=== PATIENT | female | born 1965 | race African-American/Black ===

== ENCOUNTER 2018-03-21 14:32 | Emergency (ER) | payer OTHER ==
[2018-03-21 14:42] VITALS: TEMP 98.7; BMI 38.0
--- NOTE | 2018-03-21 15:10 | PDOC ---
History of Present Illness - General Chief Complaint: Pain Stated Complaint: CHEST PAIN Past History - Past Medical History Allergies/Adverse Reactions: Allergies Allergy/AdvReac Type Severity Reaction Status Date / Time No Known Allergies Allergy Verified 03/21/18 14:42 COPD: No Other medical history: CHRONIC BACK PAIN - Suicide/Smoking/Psychosocial Hx Smoking History: Current every day smoker Number of Cigarettes Smoked Daily: 10 Information on smoking cessation initiated: No *Physical Exam - Vital Signs Last Vital Signs Temp Pulse Resp BP Pulse Ox 98.7 F 89 18 140/85 97 03/21/18 14:38 03/21/18 14:38 03/21/18 14:38 03/21/18 14:38 03/21/18 14:38
[2018-03-21] MEDS ORDERED: IBUPROFEN 600 MG TABLET (FP) PO ONE (16:13)
--- NOTE | 2018-03-21 16:14 | PDOC ---
Attending Attestation - Resident Resident Name: Benji Alvarado - ED Attending Attestation I have performed the following: I have examined & evaluated the patient, The case was reviewed & discussed with the resident, I agree w/resident's findings & plan, Exceptions are as noted - HPI HPI: 03/21/18 17:05 52 yo F with /o chronic pain ( low back and bilateral leg pain) here with c/o chest pain. sharp intermittent , pleuritic. happened earlier today. lasted few hours then spontaneously resolved. no n/v no sob. no radiation. has had right leg swellig ( chronic ) has had doppler in past which was negative but one year ago. no family h/o of cad. no h/o pe or dvt. no recent travel. no cough no sob. no fever. no abd pain. pain left sided. - Physicial Exam PE: 03/21/18 17:07 awake alert lungs clear bilaterally heart rrr no mrg abd soft obese nt nd. ext wwp. right lower ext mild increased swelling? left. no pitting edema. 2 + symmetric pulses. skin warm and dry. - Medical Decision Making 03/21/18 17:08 differential chest wall pain , acs. infection such as pna, gerd, dvt considered due to leg swelling. plan cxr ekg labs trop doppler right leg. given asa x 2 by ems prior to arrival. Heart Score/ECG Review #1 ECG reviewed & interpreted by me at: 17:09 General ECG Interpretation: Sinus Rhythm, Normal Rate, Normal Intervals, No acute ischemic changes
--- NOTE | 2018-03-21 16:52 | PDOC ---
History of Present Illness - General Chief Complaint: Pain Stated Complaint: CHEST PAIN Time Seen by Provider: 03/21/18 16:01 - History of Present Illness Initial Comments: 52 yo F w a pmh of leg chronic lower back and leg pain with a spinal electrode stimulator and fentanyl for pain presents with the acute onset of L left sided chest pain which started while she was washing dishes. The pain is not associated with nausea, vomiting, diaphoresis, and does not radiate. She denies any back pain. The pain is slightly worse with deep inspiration. The pain is not worsened with palpation and not worse when she moves her arm. She denies any cardiac disease history. She denies any recent travel, hormonal use, history of blood clots, or recent cough. Denies any recent fevers, chills, or infections. PCP: Dr. Ad Bazan Allergies: NKA, NKDA Social Hx: smokes half a PPD, Denies using alcohol or illicit drugs. Past History - Past Medical History Allergies/Adverse Reactions: Allergies Allergy/AdvReac Type Severity Reaction Status Date / Time No Known Allergies Allergy Verified 03/21/18 14:42 Home Medications: Ambulatory Orders Amitriptyline HCl [Elavil -] 75 mg PO HS 03/21/18 Fentanyl 1 each TD ASDIR 03/21/18 Gabapentin 800 mg PO TID 03/21/18 Oxycodone HCl [Oxycodone HCl ER] 30 mg PO PRN PRN 03/21/18 COPD: No Other medical history: CHRONIC BACK PAIN - Suicide/Smoking/Psychosocial Hx Smoking History: Current every day smoker Number of Cigarettes Smoked Daily: 10 Information on smoking cessation initiated: No Review of Systems - Review of Systems Comments:: CONSTITUTIONAL: Absent: fever, no chills, no fatigue EYES: Absent: visual changes ENT: Absent: ear pain, no sore throat CARDIOVASCULAR: Present: Chest pain Absent: no palpitations RESPIRATORY: PresentL SOB Absent: cough GI: Absent: abdominal pain, no nausea, no vomiting, no constipation, no diarrhea GENITOURINARY: Absent: dysuria, no frequency, no hematuria MUSKULOSKELETAL: Present: Back pain Absent: no arthralgia, no myalgia SKIN: Absent: rash NEURO: Absent: headache *Physical Exam - Vital Signs Last Vital Signs Temp Pulse Resp BP Pulse Ox 98.7 F 89 18 140/85 97 03/21/18 14:38 10/18/18 14:38 03/21/18 14:38 03/21/18 14:38 03/21/18 14:38 - Physical Exam Comments: GENERAL: Well-appearing, well-nourished. No apparent distress. HEENT: Normocephalic, atraumatic. PERRL, EOM intact. CARDIOVASCULAR: Normal S1, S2. Regular rate and rhythm. PULMONARY: Clear to auscultation bilaterally. ABDOMEN: Soft, non-distended, non-tender. EXTREMITIES: There R calf is TTP. + jenise sign. Normal ROM in all four extremities. No gross deformities. SKIN: Warm, dry. No rash NEUROLOGICAL: No focal neurological deficits. ED Treatment Course - LABORATORY CBC & Chemistry Diagram: 03/21/18 16:35 03/21/18 16:35 - RADIOLOGY Radiology Studies Ordered: Category Date Time Status CHEST PA & LAT [RAD] Stat Radiology 03/21/18 16:12 Taken DUPLEX VASCUL US-1 LEG [US] Stat Ultrasound 03/21/18 16:25 Ordered - Medications Given in the ED: ED Medications Discontinued Medications Generic Name Dose Route Start Last Admin Trade Name Freq PRN Reason Stop Dose Admin Ibuprofen 600 mg 03/21/18 16:13 03/21/18 16:20 Motrin - PO 03/21/18 16:14 600 mg ONCE ONE Administration Medical Decision Making - Medical Decision Making 52 yo F w a pmh of leg chronic lower back and leg pain with a spinal electrode stimulator and fentanyl for pain presents with the acute onset of L left sided chest pain which started while she was washing dishes. DD includes but not limited to: ACS, PNA, pneumothorax, MSK pain, PE Plan: Cbc, Cmp, trop, PT/PTT, EKG, CXR, Duplex, Motrin, re-assess. EKG not suggestive of ACS. Considering PE: She is chronically immobile bc her leg pain, she has calf TTP, and uses tobacco. The patient denies recent travel/surgeries, hormone use, personal or family history of thrombosis. DDIMER WNL - likely not PE. Trop negative - sending 2nd trop. 2nd trop negative. This is likely MSK pain. Will DC with cardio and pcp follow up. *DC/Admit/Observation/Transfer Diagnosis at time of Disposition: Chest pain - Discharge Dispostion Disposition: HOME Condition at time of disposition: Stable Decision to Admit order: No - Referrals Referrals: Palomo Rubio MD [Staff Physician] - Ad Bazan [Non Staff, Medical] - - Patient Instructions Printed Discharge Instructions: DI for Chest Pain Additional Instructions: You came into the ER with chest pain. We did some tests and determined your were not having a heart attack, We believe your chest pain is musculoskeletal in nature. It is very important to follow up with your primary care doctor in the next 3 to 5 days to make sure your pain is going away and you are getting better. Please also schedule an appointment with the machine stoppage frequency checker - Dr. Palomo Rubio we are referring you to. Please come back to the ER if your pain worsens, you can't breathe, or have any other new or worsening concerns. Thank you for coming back to the [facility] ER. We hope you feel better soon! Print Language: YORUBA - Post Discharge Activity
[2018-03-21 16:56] LABS: BASO % 1.2 % (0-2.0); EOS % 4.1 % (0-4.5); HEMATOCRIT 37.8 % (32.4-45.2); HEMOGLOBIN 12.5 GM/dL (10.7-15.3); LYMPH % 28.7 % (8-40); MCH 28.6 pg (25.7-33.7); MCHC 33.2 g/dl (32.0-36.0); MEAN CELL VOLUME 86.1 fl (80-96); MONO % 8.5 % (3.8-10.2); NEUT % 57.5 % (42.8-82.8); PLATELET COUNT 308 K/MM3 (134-434); RBC 4.39 M/mm3 (3.60-5.2); RDW 14.5 % (11.6-15.6); WHITE BLOOD COUNT 4.6 K/mm3 (4.0-10.0)
[2018-03-21 17:22] LABS: INR 0.96 (0.83-1.09); PROTHROMBIN TIME (PATIENT) 11.3 SEC (9.7-13.0)
[2018-03-21 17:35] LABS: ALBUMIN 3.5 g/dl (3.4-5.0); ALK PHOS 103 U/L (45-117); ANION GAP 7 MMOL/L (8-16); BILIRUBIN,TOTAL 0.2 mg/dL (0.2-1); BLOOD UREA NITROGEN 11 mg/dL (7-18); CHLORIDE 106 mmol/L (98-107); CO2 26 mmol/L (21-32); CREATININE 0.9 mg/dL (0.55-1.3); GLUCOSE,RANDOM 79 mg/dL (74-106); POTASSIUM 4.5 mmol/L (3.5-5.1); SGOT/AST 16 U/L (15-37); SGPT/ALT 24 U/L (13-61); SODIUM 139 mmol/L (136-145); TOT PROT 7.1 g/dl (6.4-8.2)
[2018-03-21 19:08] VITALS: BP 123/75; PULSE 80
--- NOTE | 2018-03-22 09:29 | EKG ---
Test Reason : Blood Pressure : / mmHG Vent. Rate : 064 BPM Atrial Rate : 064 BPM P-R Int : 172 ms QRS Dur : 072 ms QT Int : 422 ms P-R-T Axes : 040 004 029 degrees QTc Int : 435 ms NORMAL SINUS RHYTHM LOW VOLTAGE QRS NO PREVIOUS ECGS AVAILABLE Confirmed by GAVIOTA REYEZ MD ([id number]) on 03/22/2018 9:29:22 AM Referred By: Confirmed By:GAVIOTA REYEZ MD
== END 2018-03-21 20:12 | disposition home or self-care (01) ==
LOC: JER 14:32
DX: R07.89 Other chest pain (principal); M54.5 Low back pain; G89.29 Other chronic pain; Z96.89 Presence of other specified functional implants; F17.210 Nicotine dependence, cigarettes, uncomplicated
CPT/HCPCS: 36415; 71046-TC-FY; 80053; 82553; 84484; 85025; 85379; 85610; 85730; 93005; 93010; 93971-TC; 99284-25